=== PATIENT | male | born 1940 | race Caucasian/White ===

== ENCOUNTER 2022-04-25 10:56 | Outpatient (CLI) | payer MEDICARE, SELFPAY ==
[2022-04-25 17:58] LABS: Chloride* 103 mmol/L (96-114); Sodium* 139 mmol/L (135-149)
[2022-04-25 17:59] LABS: Potassium* 4.5 mmol/L (3.6-5.1)
[2022-04-25 18:01] LABS: Creatinine* 0.8 mg/dL (0.5-1.5); Estimated Glomerular Filt Rate 89 ml/min
[2022-04-25 18:02] LABS: Blood Urea Nitrogen* 21 mg/dL (7-30); Calcium* 9.6 mg/dL (8.4-10.6); Carbon Dioxide* 30 mmol/L (20-32); Glucose* 96 mg/dL (60-115)
== END 2022-04-25 10:57 | disposition home or self-care (01) ==
LOC: LONREF 11:04
PROVIDERS: PCP Family Medicine; Visit Provider Family Medicine
DX: Z00.00 Encounter for general adult medical examination without abnormal findings (principal); I10 Essential (primary) hypertension
CPT/HCPCS: 80048

== ENCOUNTER 2023-04-23 08:26 | Outpatient (CLI) | payer MEDICARE, SELFPAY | END 2023-04-23 08:27 | disposition home or self-care (01) | LOC: LKVREF 08:27 | PROVIDERS: PCP Family Medicine; Visit Provider Family Medicine | DX: Z00.00 Encounter for general adult medical examination without abnormal findings (principal); I10 Essential (primary) hypertension | CPT/HCPCS: 80048 ==

== ENCOUNTER 2023-09-03 10:31 | Outpatient (CLI) | payer MEDICARE, SELFPAY | END 2023-09-03 10:32 | disposition home or self-care (01) | PROVIDERS: PCP Family Medicine; Visit Provider Family Medicine | DX: E21.5 Disorder of parathyroid gland, unspecified (principal); R93.89 Abnormal findings on diagnostic imaging of other specified body structures; Z13.21 Encounter for screening for nutritional disorder; Z13.29 Encounter for screening for other suspected endocrine disorder | CPT/HCPCS: 82310; 82607; 83970; 84439; 84443 ==

== ENCOUNTER 2024-10-26 14:59 | Outpatient (CLI) | payer MEDICARE, SELFPAY | END 2024-10-26 15:00 | disposition home or self-care (01) | LOC: LKVREF 15:00 | PROVIDERS: PCP Family Medicine; Visit Provider Family Medicine | DX: I10 Essential (primary) hypertension (principal) | CPT/HCPCS: 80048 ==